=== PATIENT | female | born 1960 | race Two or more races ===

== ENCOUNTER → 2022-08-08 | Outpatient (CLI) | payer OTHER ==
[~2022-08-08] VITALS: Ht 165.1 cm; Wt 90.7 kg
[~2022-08-08] MED LIST: ADENOSINE 76 MG in GIVE UN-DILUTED 0 ML IV ONE; BACLOFEN; LORAZAPAM; MOTRIN; [UNRECOGNIZED DRUG - OTHER]
== END | disposition home or self-care (01) ==
LOC: XYW 07:07
PROVIDERS: ATTEND Specialist
DX: R07.89 Other chest pain (principal)
CPT/HCPCS: 78452; 93017; A9500; J0153